=== PATIENT | male | born 1960 | race Caucasian/White ===

== ENCOUNTER 2023-12-05 19:44 | Emergency (ER) | payer OTHER, MEDICAID ==
[~2023-12-05] VITALS: Ht 177.8 cm; Wt 79.4 kg
[2023-12-05 19:44] VITALS: BP 143/80; PULSE 62; RESP 17; TEMP 98; O2SAT 98
[2023-12-05 21:00] VITALS: O2SAT 98
[2023-12-05 22:04] LABS: APPEARANCE,URINE SLIGHTLY HAZY (CLEAR); BLOOD, URINE 2+ (NEGATIVE); COLOR,URINE YELLOW (YELLOW); PROTEIN,URINE 1+ (NEGATIVE); UGLUCOSE NEGATIVE (NEGATIVE)
[2023-12-05 22:05] LABS: BILIRUBIN,URINE NEGATIVE (NEGATIVE); LEUKOCYTE ESTERASE ,URINE 2+ (NEGATIVE); NITRITE, URINE NEGATIVE (NEGATIVE); UROBILINOGEN,URINE 0.2 EU/dL (0.2 - 1)
[2023-12-05 22:07] LABS: BACTERIA,URINE 2+ /HPF (None Seen); MUCUS,URINE None Seen /LPF (None Seen); SQUAMOUS EPITHELIAL CELL,UR 4-10 (MOD) /LPF (0-3 (FEW))
[2023-12-05] MEDS ORDERED: CEPH-588 PO (22:53)
[2023-12-05] MEDS: cephALEXin 500 MG CAP PO ONE (23:01)
[2023-12-06 00:09] VITALS: O2SAT 98
[2023-12-06 02:29] VITALS: O2SAT 98
[2023-12-06 05:18] VITALS: O2SAT 98
[2023-12-06 10:30] VITALS: O2SAT 98
[2023-12-06 13:29] VITALS: BP 135/88; PULSE 52; RESP 12; TEMP 98; O2SAT 98
[2023-12-08] MEDS ORDERED: SULF-59 PO (12:30)
== END 2023-12-06 13:29 | disposition home or self-care (01) ==
LOC: MED 19:44
DX: T83.018A Breakdown (mechanical) of other urinary catheter, initial encounter (principal); N39.0 Urinary tract infection, site not specified; Z79.2 Long term (current) use of antibiotics; Z86.69 Personal history of other diseases of the nervous system and sense organs
CPT/HCPCS: 51705; 81001; 87086; 99285